=== PATIENT | female | born 2005 | race African-American/Black ===

== ENCOUNTER 2024-01-13 12:47 | Emergency (ER) | payer MEDICAID ==
[~2024-01-13] VITALS: Ht 170.2 cm; Wt 68.1 kg
[2024-01-13 16:16] VITALS: BP 123/74; PULSE 86; RESP 20; TEMP 98.7; O2SAT 98
== END 2024-01-13 16:16 | disposition left against medical advice (07) ==
LOC: EDSEX 12:47 → ER 12:47 → EDBD 12:47 → ER 16:16
DX: M54.9 Dorsalgia, unspecified (principal); Z53.21 Procedure and treatment not carried out due to patient leaving prior to being seen by health care provider

== ENCOUNTER 2024-07-12 02:15 | Emergency (ER) | payer MEDICAID ==
[~2024-07-12] VITALS: Ht 172.7 cm; Wt 61.5 kg
[2024-07-12] MEDS: KETOROLAC TROMETH 60MG/2ML VIAL IM ONE (02:30)
--- NOTE | 2024-07-12 02:33 | ED.PDOC ---
HPI Comments 18-year-old female with PMHx chronic back pain presents with a chief complaint of chest pain x onset this morning. Patient states that her pain is localized to her sternal region, non-radiating, and is tender to palpation. Patient endorses that she smokes marijuana. Patient denies any trauma or injuries prior to onset of symptoms. No other symptoms or modifying factors present at this time. Time Seen by MD: 02:30 Primary Care Provider: UNKNOWN Reviewed Notes: Medications, Allergies Allergies: Coded Allergies: NO KNOWN ALLERGIES (Unverified , 01/13/24) Information Source: Patient Mode of Arrival: Ambulatory Severity: Moderate Timing: Minutes Duration: Since onset Prehospital treatment: None Location: Substernal Radiation: No Radiation Quality: Aching Onset: At Rest Cardiac Risk Factors: Smoker (MARIJUANA) PE Risk Factors: None History of: None Past Medical History Past Medical History (Other): Chronic Back Pain Surgical History: Denies all surgeries OCCUPATIONAL MEDICINE SPECIALIST History: Denies all OCCUPATIONAL MEDICINE SPECIALIST Hx Family History Family History: Reviewed,noncontributory to illness Social History Smoker: Non-Smoker Alcohol: Denies ETOH Use Drugs: Marijuana Lives In: Home Constitutional: denies: chills, diaphoresis, fatigue, fever, malaise, sweats, weakness, others EENTM: denies: blurred vision, double vision, ear bleeding, ear discharge, ear drainage, ear pain, ear ringing, eye pain, eye redness, hearing loss, mouth pain, mouth swelling, nasal discharge, nose bleeding, nose congestion, nose pain, photophobia, tearing, throat pain, throat swelling, voice changes, others Respiratory: denies: cough, hemoptysis, orthopnea, SOB at rest, shortness of breath, SOB with excertion, stridor, wheezing, others Cardiovascular: reports: chest pain; denies: dizzy spells, diaphoresis, Dyspnea on exertion, edema, irregular heart beat, left arm pain, lightheadedness, palpitations, PND, syncope, others Gastrointestinal: denies: abdomen distended, abdominal pain, blood streaked bowels, constipated, diarrhea, dysphagia, difficulty swallowing, hematemesis, melena, nausea, poor appetite, poor fluid intake, rectal bleeding, rectal pain, vomiting, others Genitourinary: denies: abnormal vagina bleeding, burning, dyspareunia, dysuria, flank pain, frequency, hematuria, incontinence, pain, , vagina discharge , urgency, others Neurological: denies: dizziness, fainting, headache, left sided numbness, left sided weakness, numbness, paresthesia, pre-existing deficit, right sided numbness, right sided weakness, seizure, speech problems, tingling, tremors, weakness, others Musculoskeletal: denies: back pain, gout, joint pain, joint swelling, muscle pain, muscle stiffness, neck pain, others Integumetry: denies: bruises, change in color, change in hair/nails, dryness, laceration, lesions, lumps, rash, wounds, others Allergic/Immunocompromised: denies: Difficulty Healing, Frequent Infections, Hives, Itching, others Hematologic/Lymphatic: denies: anemia, blood clots, easy bleeding, easy bruising, swollen glands, others Endocrine: denies: excessive hunger, excessive sweating, excessive thirst, excessive urination, flushing, intolerance to cold, intolerance to heat, unexplained weight gain, unexplained weight loss, others Psychiatric: denies: anxiety, bipolar disorder, depression, hopeless, panic di sorder, schizophrenia, sleepless, suicidal, others All Other Systems: Reviewed and Negative Physical Exam General Appearance: No Apparent Distress, Normal HEENT: Normal ENT Inspection, Pharynx Normal, TMs Normal Neck: Full Range of Motion, Non-Tender, Normal, Normal Inspection Respiratory: Chest Non-Tender, Lungs Clear, No Accessory Muscle Use, No Respiratory Distress, Normal Breath Sounds Cardiovascular: No Edema, No JVD, No Murmur, No Gallop, Normal Peripheral Pulses, Regular Rate/Rhythm Breast Exam: Deferred Gastrointestinal: No Organomegaly, Non Tender, No Pulsatile Mass, Normal Bowel Sounds, Soft Genitalia: Deferred Pelvic: Deferred Rectal: Deferred Extremities: No calf tenderness, Normal capillary refill, Normal inspection, Normal range of motion, Non-tender, No pedal edema Musculoskeletal : Apperance: Normal Neurologic: Alert, hosiery bagger II-XII nml as Tested, No Motor Deficits, Normal Affect, Normal Mood, No Sensory Deficits Cerebellar Function: Normal Reflexes: Normal Skin: Dry, Normal Color, Warm Lymphatic: No Adenopathy EKG EKG : Pulse Rate (adult): 75 [place]: Normal Cardiac Rhythm: NSR Block: None Hypertrophy: None ST: Normal Was a procedure done? Was a procedure done?: No CP Differential Dx Differential Diagnosis: Other Differential Diagnosis: HTN Essential Differential Diagnosis: Angina, Chest Wall Pain, Costochondritis, Esophageal reflux/spasm, Myocardial Infarction, Pericarditis, Pneumonia, Pneumothorax, Pulmonary Embolus X-Ray, Labs, Meds, VS Vital Signs Date Time Temp Pulse Resp B/P (MAP) Pulse Ox O2 Delivery O2 Flow Rate FiO2 07/12/24 02:37 98.3 87 16 134/104 (114) 100 07/12/24 02:33 75 07/12/24 02:20 75 Time of 1ST Reevaluation: 03:00 Reevaluation 1ST: Unchanged Time of 2ND Reevaluation: 03:06 Reevaluation 2ND: Improved Patient Education/Counseling: Diagnosis, Treatment, Prognosis, Need For Follow Up Family Education/Counseling: No Family Present Additional Information I reviewed the following notes from the pt's past medical encounters: Patient was last seen here at this facility on January 13, 2024 for lower back pain. The following tests were ordered, and results were reviewed by me: Chest X-Ray, EKG, Urinalysis I reviewed and agreed with the following test results read by other providers: cxr I discussed treatments and results with medical personnel this is a young healthy female with a HEAR score of 0 and an unremarkable cxr and ekg. her pain is consistent with cwp. she is stable for discharge Departure 1 Departure Time of Disposition: 03:08 Impression: Primary Impression: Chest wall pain Additional Impressions: Hypertension Elevated blood pressure reading Disposition: HOME / SELF CARE / HOMELESS Condition: Good e-Prescriptions Ibuprofen Micronized (MOTRIN TABLET) 600 Mg Tb 600 MG PO TID PRN, #40 TAB *Black box warning-NSAIDS can increase risk of IL & hypertension, GI irritation, ulceration, bleed, perferation. Do not use post cardiac surgery. Use short duration/lowest effective dose. Prov: JJ SILVA MD 07/12/24 Discharged With: Self Critical Care Note Critical Care Time?: No Stability Stability form required: No Heart Score Heart Score: Heart Score Response (Comments) Value History Slightly Suspicious 0 EKG Normal 0 Age <45 0 Risk Factors No known risk factors 0 Troponin N/A 0 Total 0 I personally scribed for JJ SILVA MD ([email or web address]) on 07/12/24 at 02:33. Electronically submitted by Carlos Garcia ([email or web address]). I personally scribed for JJ SILVA MD ([facility]) on 07/12/24 at 02:35. Electronically submitted by Carlos Garcia ([email or web address]). JJ SILVA MD Jul 12, 2024 02:33
[2024-07-12] MEDS ORDERED: IBU600T PO (03:09)
--- NOTE | 2024-07-12 04:00 | DVH ---
Examination: CXRP Clinical Indication: cp Comparison: None. Technique: Frontal radiograph of the chest was obtained. Findings: Lungs are clear and well expanded, with no pulmonary infiltrate or pleural effusion. There is no pneumothorax. The cardiomediastinal silhouette is within normal limits. No acute osseous abnormality is seen. Linear metallic density projecting over the posterior aspect of the right 9th rib. Impression: No acute cardiopulmonary disease is seen. Electronically Signed 07/12/2024 03:59 Faisal Astudillo
[2024-07-12 06:00] VITALS: O2SAT 98
[2024-07-12 06:08] VITALS: BP 138/77; PULSE 66; RESP 18; TEMP 97.8; O2SAT 98
--- NOTE | 2024-07-14 10:36 | ECG ---
[facility] Test Date: 2024-07-12 Test Time: 02:20:51 Pat Name: DOYLE Department: ED Room: Gender: F Community Case Manager: SENDY : 2005 Requested By: JJ SILVA Order Number: [id number] Reading MD: Maximino Espinosa Measurements Intervals [place] Rate: 75 P: 101 MT: 177 QRS: 79 QRSD: 87 T: 59 QT: 349 QTc: 390 Interpretive Statements Sinus rhythm Borderline Q waves in inferior leads Nonspecific T abnormalities, lateral leads Electronically Signed On 07-14-2024 16:12:46 PST by Maximino Espinosa Please click the below link to view image of tracing.
== END 2024-07-12 06:31 | disposition home or self-care (01) ==
LOC: ER 02:15
DX: R07.89 Other chest pain (principal); R94.31 Abnormal electrocardiogram [ECG] [EKG]; I10 Essential (primary) hypertension; G89.29 Other chronic pain; F12.10 Cannabis abuse, uncomplicated
CPT/HCPCS: 71045; 93005